=== PATIENT | female | born 1980 | race Caucasian/White ===

== ENCOUNTER 2017-07-24 14:23 | Observation (INO) | payer MEDICAID, OTHER ==
[~2017-07-24] VITALS: Ht 165.1 cm; Wt 68.2 kg
[2017-07-24 14:58] LABS: AMPHETAMINE SCREEN, URINE Positive (Negative); BARBITURATE SCREEN, URINE Negative (Negative); BENZODIAZEPINE SCREEN, URINE Negative (Negative); CANNABINOID SCREEN, URINE Positive (Negative); COCAINE SCREEN, URINE Negative (Negative); METHADONE SCREEN, URINE Negative (Negative); OPIATE SCREEN, URINE Negative (Negative)
[2017-07-24 15:04] LABS: BASOPHILS # (AUTO) 0.07 x10^3/uL (0-0.1); BASOPHILS % (AUTO) 1 % (0-1); EOSINOPHILS # (AUTO) 0.24 x10^3/uL (0-0.4); EOSINOPHILS % (AUTO) 3 % (1-7); LYMPHOCYTES # (AUTO) 2.89 x10^3/uL (1-3.4); LYMPHOCYTES % (AUTO) 31 % (22-44); MD NO; MEAN CORPUSCULAR HEMOGLOBIN 27.5 pg (27.0-34.8); MEAN CORPUSCULAR VOLUME 83.2 fL (80-100); MEAN PLATELET VOLUME 8.3 fL (7.4-10.4); MONOCYTES # (AUTO) 0.59 x10^3/uL (0.2-0.8); MONOCYTES % (AUTO) 6 % (2-9); NEUTROPHILS # (AUTO) 5.56 x10^3/uL (1.8-6.8); NEUTROPHILS % (AUTO) 59 % (42-75); PLATELET COUNT 325 x10^3/uL (130-400); RED BLOOD COUNT 5.04 x10^6/uL (3.82-5.3); RED CELL DISTRIBUTION WIDTH 15.1 % (9.6-15.2)
[2017-07-24 15:11] LABS: ALBUMIN 3.6 g/dL (3.4-5.0); ANION GAP 7 mmol/L (5-15); CALCIUM 8.8 mg/dL (8.5-10.1); CHLORIDE 106 mmol/L (98-107)
[2017-07-24 15:16] LABS: CREATININE 0.88 mg/dL (0.55-1.02)
[2017-07-24 15:19] LABS: HCG UR SG 1.023 (1.003-1.030)
[2017-07-24 15:21] LABS: SALICYLATE LEVEL < 1.7 mg/dL (2.8-20.0)
[2017-07-24 15:22] LABS: ACETAMINOPHEN < 2 mcg/mL (10-30)
[2017-07-24] MEDS ORDERED: ONDANSETRON ODT 4 MG ONE (18:51)
[2017-07-24] MEDS ORDERED: ONDANSETRON ODT 4 MG PO ONE (19:00)
[2017-07-24] MEDS: PAROXETINE 10 MG TABLET PO SCH (20:22)
[2017-07-24] MEDS: BUTALB/APAP/CAFFEINE 50MG/325MG/40MG PO ONE ×2 (20:22→20:25)
[2017-07-25] MEDS: PAROXETINE 10 MG TABLET PO SCH (09:00)
[2017-07-25 10:16] VITALS: BP 109/73
[2017-07-25] MEDS ORDERED: LEVE250T28 PO (10:26)
[2017-07-25] MEDS: ACETAMINOPHEN 325 MG TABLET PO PRN ×2 (12:10→22:28)
[2017-07-25 19:37] VITALS: BP 100/62
[2017-07-25] MEDS ORDERED: LORazepam 2 MG/ML, 1ML ONE (22:40)
[2017-07-25] MEDS ORDERED: LORazepam 2 MG/ML, 1ML IVPush ONE (23:00)
[2017-07-25] MEDS ORDERED: LEVETIRACETAM 100 MG/ML, 5ML IV ONE (23:00)
[2017-07-25 23:14] VITALS: BP 119/82
[2017-07-25] MEDS ORDERED: LEVETIRACETAM 500 MG in SODIUM CHLORIDE 0.9% 100 ML IV ONE (23:30)
[2017-07-26] MEDS ORDERED: LEVETIRACETAM 1,000 MG in SODIUM CHLORIDE 0.9% 100 ML IV ONE
[2017-07-26] MEDS ORDERED: DIPHENHYDRAMINE 50 MG/ML, 1ML IVPush ONE (00:30)
[2017-07-26] MEDS ORDERED: METOCLOPRAMIDE 5 MG/ML, 2ML IVPush ONE (00:30)
[2017-07-26 00:35] LABS: BASOPHILS # (AUTO) 0.05 x10^3/uL (0-0.1); BASOPHILS % (AUTO) 1 % (0-1); EOSINOPHILS # (AUTO) 0.27 x10^3/uL (0-0.4); EOSINOPHILS % (AUTO) 3 % (1-7); LYMPHOCYTES # (AUTO) 2.86 x10^3/uL (1-3.4); LYMPHOCYTES % (AUTO) 33 % (22-44); MD NO; MEAN CORPUSCULAR HEMOGLOBIN 27.5 pg (27.0-34.8); MEAN CORPUSCULAR VOLUME 83.1 fL (80-100); MEAN PLATELET VOLUME 8.5 fL (7.4-10.4); MONOCYTES # (AUTO) 0.63 x10^3/uL (0.2-0.8); MONOCYTES % (AUTO) 7 % (2-9); NEUTROPHILS % (AUTO) 56 % (42-75); PLATELET COUNT 336 x10^3/uL (130-400); RED BLOOD COUNT 5.06 x10^6/uL (3.82-5.3)
[2017-07-26] MEDS: SODIUM CHLORIDE 0.9% 1,000 ML IV SCH ×3 (00:38→20:21)
[2017-07-26 01:10] LABS: ALANINE AMINOTRANSFERASE 24 U/L (12-78); ALBUMIN 3.7 g/dL (3.4-5.0); ANION GAP 9 mmol/L (5-15); CALCIUM 8.8 mg/dL (8.5-10.1); CHLORIDE 105 mmol/L (98-107); CREATININE 0.96 mg/dL (0.55-1.02)
[2017-07-26 01:12] LABS: ALKALINE PHOSPHATASE 76 U/L (45-117); BILIRUBIN,TOTAL 0.5 mg/dL (0.2-1.0); TOTAL PROTEIN 7.6 g/dL (6.4-8.2)
[2017-07-26 05:25] VITALS: BP 92/72
[2017-07-26 06:50] VITALS: BP 101/60
[2017-07-26] MEDS: PAROXETINE 10 MG TABLET PO SCH (08:17)
[2017-07-26] MEDS ORDERED: LEVETIRACETAM 500 MG TABLET PO SCH (09:00)
[2017-07-26 14:00] VITALS: BP 93/50
[2017-07-26 16:04] VITALS: BP 110/70
[2017-07-26 16:10] VITALS: BP 104/64
[2017-07-26] MEDS: ACETAMINOPHEN 325 MG TABLET PO PRN (17:48)
[2017-07-26 20:01] VITALS: BP 94/52
[2017-07-26] MEDS: LEVETIRACETAM 500 MG TABLET PO SCH (20:20)
[2017-07-27 01:33] VITALS: BP 96/61
[2017-07-27 06:30] VITALS: BP 108/67
[2017-07-27] MEDS: LEVETIRACETAM 500 MG TABLET PO SCH ×2 (07:54→20:03)
[2017-07-27] MEDS: PAROXETINE 10 MG TABLET PO SCH (07:54)
[2017-07-27] MEDS: SODIUM CHLORIDE 0.9% 1,000 ML IV SCH (07:54)
[2017-07-27 12:13] VITALS: BP 106/72
[2017-07-27] MEDS: NICOTINE 21 MG/24 HR PATCH.TD24 TD SCH (12:29)
[2017-07-27 19:30] VITALS: BP 124/84
[2017-07-27] MEDS: LORazepam 1MG TABLET PO PRN (20:07)
[2017-07-28 00:51] VITALS: BP 106/69
[2017-07-28 07:53] VITALS: BP 107/70
[2017-07-28] MEDS: PAROXETINE 10 MG TABLET PO SCH (08:21)
[2017-07-28] MEDS: LEVETIRACETAM 500 MG TABLET PO SCH ×2 (08:21→20:17)
[2017-07-28 14:47] VITALS: BP 101/73
[2017-07-28] MEDS: NICOTINE 21 MG/24 HR PATCH.TD24 TD SCH (15:12)
[2017-07-28] MEDS: ACETAMINOPHEN 325 MG TABLET PO PRN (17:24)
[2017-07-28] MEDS: LORazepam 1MG TABLET PO PRN (17:24)
[2017-07-28 18:33] VITALS: BP 104/67
[2017-07-29 01:24] VITALS: BP 104/67
[2017-07-29 08:06] VITALS: BP 115/56
[2017-07-29] MEDS: LEVETIRACETAM 500 MG TABLET PO SCH ×2 (09:31→21:39)
[2017-07-29] MEDS: PAROXETINE 10 MG TABLET PO SCH (09:31)
[2017-07-29] MEDS: NICOTINE 21 MG/24 HR PATCH.TD24 TD SCH (09:31)
[2017-07-29 14:56] VITALS: BP 112/79
[2017-07-29 20:00] VITALS: BP 111/71
[2017-07-29] MEDS: LORazepam 1MG TABLET PO PRN (21:39)
[2017-07-29] MEDS: ACETAMINOPHEN 325 MG TABLET PO PRN (21:40)
[2017-07-30 02:00] VITALS: BP 99/57
[2017-07-30] MEDS: PAROXETINE 10 MG TABLET PO SCH (09:42)
[2017-07-30] MEDS: LEVETIRACETAM 500 MG TABLET PO SCH ×2 (09:42→21:07)
[2017-07-30] MEDS: NICOTINE 21 MG/24 HR PATCH.TD24 TD SCH (09:43)
[2017-07-30 12:54] VITALS: BP 114/68
[2017-07-30] MEDS: LORazepam 2 MG/ML, 1ML IVPush PRN ×2 (13:00→13:23)
[2017-07-30 14:43] VITALS: BP 132/64
[2017-07-30] MEDS: ACETAMINOPHEN 325 MG TABLET PO PRN (18:13)
[2017-07-30 20:00] VITALS: BP 110/75
[2017-07-30] MEDS: LORazepam 1MG TABLET PO PRN (21:07)
[2017-07-31 02:50] VITALS: BP 90/47
[2017-07-31 03:07] VITALS: BP 105/62
[2017-07-31] MEDS: ACETAMINOPHEN 325 MG TABLET PO PRN (06:01)
[2017-07-31 07:00] VITALS: BP 98/57
[2017-07-31] MEDS: METHOCARBAMOL 500 MG TABLET PO PRN (08:59)
[2017-07-31] MEDS: NICOTINE 21 MG/24 HR PATCH.TD24 TD SCH (08:59)
[2017-07-31] MEDS: PAROXETINE 10 MG TABLET PO SCH (08:59)
[2017-07-31] MEDS: LEVETIRACETAM 500 MG TABLET PO SCH ×2 (09:00→20:56)
[2017-07-31 11:18] VITALS: BP 91/56
[2017-07-31] MEDS: LORazepam 1MG TABLET PO PRN ×2 (12:56→22:42)
[2017-07-31 13:09] VITALS: BP 101/72
[2017-07-31] MEDS ORDERED: ASPIRIN 325 MG TABLET PO ONE (20:30)
[2017-07-31 20:44] LABS: TROPONIN I < 0.015 ng/mL (0.000-0.045)
[2017-07-31 22:41] VITALS: BP 109/73
[2017-08-01 02:36] VITALS: BP 96/68
[2017-08-01 09:10] VITALS: BP 102/64
[2017-08-01] MEDS: LEVETIRACETAM 500 MG TABLET PO SCH ×2 (09:52→20:35)
[2017-08-01] MEDS: NICOTINE 21 MG/24 HR PATCH.TD24 TD SCH (09:52)
[2017-08-01] MEDS: PAROXETINE 10 MG TABLET PO SCH (09:52)
[2017-08-01] MEDS: METHOCARBAMOL 500 MG TABLET PO PRN ×2 (12:22→21:25)
[2017-08-01] MEDS: LORazepam 1MG TABLET PO PRN ×2 (12:22→14:50)
[2017-08-01] MEDS: ACETAMINOPHEN 325 MG TABLET PO PRN (14:50)
[2017-08-01 15:25] VITALS: BP 108/69
[2017-08-01 16:42] VITALS: BP 114/73
[2017-08-01] MEDS: LORazepam 2 MG/ML, 1ML IVPush PRN (16:44)
[2017-08-01 20:00] VITALS: BP 104/67
[2017-08-02 02:00] VITALS: BP 95/62
[2017-08-02 06:53] VITALS: BP 97/56
[2017-08-02] MEDS: LEVETIRACETAM 500 MG TABLET PO SCH ×2 (09:00→20:26)
[2017-08-02] MEDS: PAROXETINE 10 MG TABLET PO SCH (10:01)
[2017-08-02] MEDS: METHOCARBAMOL 500 MG TABLET PO PRN ×2 (10:01→18:13)
[2017-08-02] MEDS: NICOTINE 21 MG/24 HR PATCH.TD24 TD SCH (10:01)
[2017-08-02 12:20] VITALS: BP 108/69
[2017-08-02] MEDS: LORazepam 2 MG/ML, 1ML IVPush PRN ×2 (14:18→19:53)
[2017-08-02 19:04] VITALS: BP 95/56
[2017-08-02] MEDS: ACETAMINOPHEN 325 MG TABLET PO PRN (20:26)
[2017-08-03 03:48] VITALS: BP 113/73
[2017-08-03] MEDS: LORazepam 2 MG/ML, 1ML IVPush PRN ×2 (05:34→21:42)
[2017-08-03] MEDS: LEVETIRACETAM 500 MG TABLET PO SCH (09:33)
[2017-08-03] MEDS: PAROXETINE 10 MG TABLET PO SCH (09:33)
[2017-08-03] MEDS: NICOTINE 21 MG/24 HR PATCH.TD24 TD SCH (09:33)
[2017-08-03] MEDS: METHOCARBAMOL 500 MG TABLET PO PRN (09:35)
[2017-08-03 14:30] VITALS: BP 95/63
[2017-08-03] MEDS: LORazepam 1MG TABLET PO PRN (17:42)
[2017-08-03 19:19] VITALS: BP 114/71
[2017-08-03] MEDS: DIVALPROEX 500 MG TAB.ER.24H PO SCH (21:40)
[2017-08-03] MEDS: ACETAMINOPHEN 325 MG TABLET PO PRN (21:40)
[2017-08-04 03:05] VITALS: BP 102/66
[2017-08-04 06:44] VITALS: BP 113/74
[2017-08-04] MEDS: NICOTINE 21 MG/24 HR PATCH.TD24 TD SCH (08:37)
[2017-08-04] MEDS: PAROXETINE 10 MG TABLET PO SCH (08:37)
[2017-08-04] MEDS: METHOCARBAMOL 500 MG TABLET PO PRN ×2 (13:59→21:07)
[2017-08-04 14:14] VITALS: BP 112/65
[2017-08-04] MEDS: ACETAMINOPHEN 325 MG TABLET PO PRN (15:42)
[2017-08-04] MEDS: ONDANSETRON 2MG/ML, 2ML IVPush PRN (16:08)
[2017-08-04] MEDS: LORazepam 2 MG/ML, 1ML IVPush PRN (17:06)
[2017-08-04 20:08] VITALS: BP 111/71
[2017-08-04] MEDS: DIVALPROEX 500 MG TAB.ER.24H PO SCH (21:07)
[2017-08-04] MEDS: LORazepam 1MG TABLET PO PRN (21:07)
[2017-08-05 02:00] VITALS: BP 135/78
[2017-08-05] MEDS: LORazepam 2 MG/ML, 1ML IVPush PRN ×2 (05:18→20:55)
[2017-08-05 07:38] VITALS: BP 130/75
[2017-08-05] MEDS: ACETAMINOPHEN 325 MG TABLET PO PRN ×2 (08:13→22:28)
[2017-08-05] MEDS: NICOTINE 21 MG/24 HR PATCH.TD24 TD SCH (08:13)
[2017-08-05] MEDS: METHOCARBAMOL 500 MG TABLET PO PRN ×2 (08:13→22:28)
[2017-08-05 15:24] VITALS: BP 102/68
[2017-08-05] MEDS: LORazepam 1MG TABLET PO PRN (16:57)
[2017-08-05 21:27] VITALS: BP 112/78
[2017-08-05] MEDS: DIVALPROEX 500 MG TAB.ER.24H PO SCH (22:27)
[2017-08-06 03:35] VITALS: BP 105/71
[2017-08-06 06:29] VITALS: BP 107/72
[2017-08-06] MEDS: NICOTINE 21 MG/24 HR PATCH.TD24 TD SCH (09:03)
[2017-08-06] MEDS: ACETAMINOPHEN 325 MG TABLET PO PRN (11:16)
[2017-08-06 12:07] VITALS: BP 115/75
[2017-08-06] MEDS: ONDANSETRON 2MG/ML, 2ML IVPush PRN (17:23)
[2017-08-06] MEDS: METHOCARBAMOL 500 MG TABLET PO PRN (17:38)
[2017-08-06 20:00] VITALS: BP 110/73
[2017-08-06] MEDS: DIVALPROEX 500 MG TAB.ER.24H PO SCH (22:40)
[2017-08-07 02:15] VITALS: BP 104/68
[2017-08-07 08:30] VITALS: BP 102/68
[2017-08-07] MEDS: NICOTINE 21 MG/24 HR PATCH.TD24 TD SCH (09:34)
[2017-08-07 14:05] VITALS: BP 105/74
[2017-08-07 18:37] VITALS: BP 99/59
[2017-08-07 19:20] VITALS: BP 120/74
[2017-08-07] MEDS: ACETAMINOPHEN 325 MG TABLET PO PRN (20:07)
[2017-08-07] MEDS: DIVALPROEX 500 MG TAB.ER.24H PO SCH (20:07)
[2017-08-07] MEDS: LORazepam 1MG TABLET PO PRN (21:19)
[2017-08-08 03:22] VITALS: BP 92/58
[2017-08-08 07:08] VITALS: BP 92/60
[2017-08-08] MEDS: NICOTINE 21 MG/24 HR PATCH.TD24 TD SCH (08:29)
[2017-08-08 14:44] VITALS: BP 111/72
[2017-08-08] MEDS: DIVALPROEX 500 MG TAB.ER.24H PO SCH (20:00)
[2017-08-08 21:17] VITALS: BP 103/70
[2017-08-08] MEDS: ONDANSETRON 2MG/ML, 2ML IVPush PRN (21:54)
[2017-08-09 01:32] VITALS: BP 90/55
[2017-08-09 09:40] VITALS: BP 99/67
[2017-08-09] MEDS: NICOTINE 21 MG/24 HR PATCH.TD24 TD SCH (09:45)
[2017-08-09 13:40] VITALS: BP 101/58
[2017-08-09] MEDS: METHOCARBAMOL 500 MG TABLET PO PRN (14:35)
[2017-08-09] MEDS: ONDANSETRON 2MG/ML, 2ML IVPush PRN ×2 (14:37→20:38)
[2017-08-09 19:21] VITALS: BP 109/79
[2017-08-09] MEDS: DIVALPROEX 500 MG TAB.ER.24H PO SCH (20:38)
[2017-08-10 01:39] VITALS: BP 114/81
[2017-08-10] MEDS: ONDANSETRON 2MG/ML, 2ML IVPush PRN ×3 (02:26→20:17)
[2017-08-10 07:40] VITALS: BP 118/78
[2017-08-10 11:28] LABS: CLOSTRIDIUM DIFFICILE ANTIGEN NEGATIVE; CLOSTRIDIUM DIFFICILE TOXIN NEGATIVE (Negative)
[2017-08-10 11:32] LABS: ALANINE AMINOTRANSFERASE 17 U/L (12-78); ALBUMIN 3.9 g/dL (3.4-5.0); ANION GAP 11 mmol/L (5-15); CALCIUM 8.8 mg/dL (8.5-10.1); CHLORIDE 103 mmol/L (98-107); CREATININE 1.17 mg/dL (0.55-1.02)
[2017-08-10 11:33] LABS: ALKALINE PHOSPHATASE 70 U/L (45-117); BILIRUBIN,TOTAL 1.1 mg/dL (0.2-1.0); TOTAL PROTEIN 7.9 g/dL (6.4-8.2)
[2017-08-10] MEDS: NICOTINE 21 MG/24 HR PATCH.TD24 TD SCH (11:59)
[2017-08-10 15:50] VITALS: BP 117/76
[2017-08-10 15:51] LABS: BASOPHILS # (AUTO) 0.03 x10^3/uL (0-0.1); BASOPHILS % (AUTO) 0 % (0-1); EOSINOPHILS # (AUTO) 0.28 x10^3/uL (0-0.4); EOSINOPHILS % (AUTO) 2 % (1-7); LYMPHOCYTES # (AUTO) 2.59 x10^3/uL (1-3.4); LYMPHOCYTES % (AUTO) 20 % (22-44); MD NO; MEAN CORPUSCULAR HEMOGLOBIN 27.9 pg (27.0-34.8); MEAN CORPUSCULAR HGB CONC 33.7 g/dL (32.4-35.8); MEAN CORPUSCULAR VOLUME 82.7 fL (80-100); MEAN PLATELET VOLUME 8.8 fL (7.4-10.4); MONOCYTES # (AUTO) 0.94 x10^3/uL (0.2-0.8); MONOCYTES % (AUTO) 7 % (2-9); NEUTROPHILS # (AUTO) 9.17 x10^3/uL (1.8-6.8); NEUTROPHILS % (AUTO) 71 % (42-75); PLATELET COUNT 277 x10^3/uL (130-400); RED BLOOD COUNT 5.44 x10^6/uL (3.82-5.3); RED CELL DISTRIBUTION WIDTH 15.3 % (9.6-15.2)
[2017-08-10] MEDS: ACETAMINOPHEN 325 MG TABLET PO PRN (17:58)
[2017-08-10 19:36] VITALS: BP 100/62
[2017-08-10] MEDS: DIVALPROEX 500 MG TAB.ER.24H PO SCH (20:17)
[2017-08-10 21:42] LABS: MICROSCOPIC AUTO
[2017-08-10 21:43] LABS: CULTURE INDICATED? YES
[2017-08-11] MEDS: ACETAMINOPHEN 325 MG TABLET PO PRN ×2 (00:45→08:53)
[2017-08-11 01:04] VITALS: BP 104/65
[2017-08-11 06:00] LABS: BASOPHILS # (AUTO) 0.03 x10^3/uL (0-0.1); BASOPHILS % (AUTO) 0 % (0-1); EOSINOPHILS % (AUTO) 3 % (1-7); LYMPHOCYTES # (AUTO) 3.48 x10^3/uL (1-3.4); LYMPHOCYTES % (AUTO) 35 % (22-44); MD NO; MEAN CORPUSCULAR HEMOGLOBIN 28.4 pg (27.0-34.8); MEAN CORPUSCULAR HGB CONC 33.8 g/dL (32.4-35.8); MEAN CORPUSCULAR VOLUME 84.2 fL (80-100); MEAN PLATELET VOLUME 8.7 fL (7.4-10.4); MONOCYTES # (AUTO) 0.81 x10^3/uL (0.2-0.8); MONOCYTES % (AUTO) 8 % (2-9); NEUTROPHILS # (AUTO) 5.44 x10^3/uL (1.8-6.8); NEUTROPHILS % (AUTO) 54 % (42-75); PLATELET COUNT 254 x10^3/uL (130-400); RED BLOOD COUNT 5.35 x10^6/uL (3.82-5.3); RED CELL DISTRIBUTION WIDTH 15.6 % (9.6-15.2)
[2017-08-11 06:03] LABS: CHLORIDE 104 mmol/L (98-107)
[2017-08-11 06:10] LABS: ALANINE AMINOTRANSFERASE 15 U/L (12-78); ALBUMIN 3.7 g/dL (3.4-5.0); ALKALINE PHOSPHATASE 65 U/L (45-117); ANION GAP 10 mmol/L (5-15); BILIRUBIN,TOTAL 1.2 mg/dL (0.2-1.0); CALCIUM 8.6 mg/dL (8.5-10.1); CREATININE 0.99 mg/dL (0.55-1.02); TOTAL PROTEIN 7.7 g/dL (6.4-8.2)
[2017-08-11] MEDS: ONDANSETRON 2MG/ML, 2ML IVPush PRN (08:52)
[2017-08-11 10:27] VITALS: BP 99/62
[2017-08-11] MEDS: NICOTINE 21 MG/24 HR PATCH.TD24 TD SCH (13:40)
[2017-08-11 14:34] VITALS: BP 91/58
[2017-08-11 14:55] VITALS: BP 110/67
[2017-08-11] MEDS: DIVALPROEX 500 MG TAB.ER.24H PO SCH ×2 (20:11→20:16)
[2017-08-11] MEDS: LORazepam 1MG TABLET PO PRN (20:16)
[2017-08-11 20:35] VITALS: BP 99/62
[2017-08-11 22:00] VITALS: BP 102/67
[2017-08-12] MEDS: ACETAMINOPHEN 325 MG TABLET PO PRN (00:31)
[2017-08-12 06:51] LABS: BASOPHILS # (AUTO) 0.03 x10^3/uL (0-0.1); BASOPHILS % (AUTO) 0 % (0-1); EOSINOPHILS # (AUTO) 0.44 x10^3/uL (0-0.4); EOSINOPHILS % (AUTO) 5 % (1-7); LYMPHOCYTES # (AUTO) 3.26 x10^3/uL (1-3.4); LYMPHOCYTES % (AUTO) 36 % (22-44); MD NO; MEAN CORPUSCULAR HEMOGLOBIN 27.6 pg (27.0-34.8); MEAN CORPUSCULAR HGB CONC 32.9 g/dL (32.4-35.8); MEAN CORPUSCULAR VOLUME 83.7 fL (80-100); MEAN PLATELET VOLUME 8.1 fL (7.4-10.4); MONOCYTES # (AUTO) 0.86 x10^3/uL (0.2-0.8); MONOCYTES % (AUTO) 10 % (2-9); NEUTROPHILS # (AUTO) 4.41 x10^3/uL (1.8-6.8); NEUTROPHILS % (AUTO) 49 % (42-75); PLATELET COUNT 217 x10^3/uL (130-400); RED BLOOD COUNT 4.97 x10^6/uL (3.82-5.3); RED CELL DISTRIBUTION WIDTH 15.4 % (9.6-15.2)
[2017-08-12 07:02] LABS: ANION GAP 7 mmol/L (5-15); CALCIUM 8.5 mg/dL (8.5-10.1); CHLORIDE 105 mmol/L (98-107)
[2017-08-12 07:52] VITALS: BP 100/66
[2017-08-12] MEDS: NICOTINE 21 MG/24 HR PATCH.TD24 TD SCH (08:41)
[2017-08-12] MEDS: LORazepam 1MG TABLET PO PRN (14:13)
[2017-08-12 20:17] VITALS: BP 130/84
[2017-08-12] MEDS: CEFDINIR 300 MG CAPSULE PO SCH (21:09)
[2017-08-12] MEDS: DIVALPROEX 500 MG TAB.ER.24H PO SCH (21:10)
[2017-08-12] MEDS ORDERED: ONDANSETRON 4 MG TABLET PO PRN (22:30)
[2017-08-12] MEDS ORDERED: ONDANSETRON 4 MG TABLET ONE (22:32)
[2017-08-13] MEDS: CEFDINIR 300 MG CAPSULE PO SCH ×2 (08:29→20:22)
[2017-08-13] MEDS: NICOTINE 21 MG/24 HR PATCH.TD24 TD SCH (08:29)
[2017-08-13 09:15] VITALS: BP 109/75
[2017-08-13] MEDS: LORazepam 1MG TABLET PO PRN ×2 (14:32→20:57)
[2017-08-13 19:44] VITALS: BP 96/61
[2017-08-13] MEDS: DIVALPROEX 500 MG TAB.ER.24H PO SCH (20:23)
[2017-08-14] MEDS: CEFDINIR 300 MG CAPSULE PO SCH ×2 (08:31→21:04)
[2017-08-14] MEDS: NICOTINE 21 MG/24 HR PATCH.TD24 TD SCH (08:31)
[2017-08-14 08:33] VITALS: BP 96/63
[2017-08-14 20:03] VITALS: BP 111/73
[2017-08-14] MEDS: METHOCARBAMOL 500 MG TABLET PO PRN (20:03)
[2017-08-14] MEDS ORDERED: PRAZOSIN 1 MG CAPSULE PO SCH (21:00)
[2017-08-14] MEDS: DIVALPROEX 500 MG TAB.ER.24H PO SCH (21:04)
[2017-08-15 01:28] VITALS: BP 107/65
[2017-08-15 08:43] VITALS: BP 91/57
[2017-08-15] MEDS: NICOTINE 21 MG/24 HR PATCH.TD24 TD SCH (09:37)
[2017-08-15] MEDS: CEFDINIR 300 MG CAPSULE PO SCH (09:38)
[2017-08-15] MEDS ORDERED: PRAZ1CAP2 PO (13:44)
[2017-08-15] MEDS ORDERED: DIVA500T4 PO (13:44)
[2017-08-15] MEDS ORDERED: CEFD300C37 PO (13:44)
[2017-08-15] MEDS ORDERED: [UNRECOGNIZED DRUG - OTHER] (13:44)
[2017-08-15] MEDS ORDERED: HYDR25CA PO (13:44)
[2017-08-15] MEDS ORDERED: NICO-487 TD (13:44)
== END 2017-08-15 15:28 | disposition home or self-care (01) ==
LOC: ED 15:00 → EDBD 17:13 → EDIP 17:13 → 2N 07-25 10:06 → 4WST 07-25 23:16 → 3E 08-11 21:57
PROVIDERS: ADMIT Internal Medicine; ATTEND Internal Medicine
DX: R45.851 Suicidal ideations (principal); G43.909 Migraine, unspecified, not intractable, without status migrainosus; G40.909 Epilepsy, unspecified, not intractable, without status epilepticus; F41.9 Anxiety disorder, unspecified; F32.9 Major depressive disorder, single episode, unspecified; F12.10 Cannabis abuse, uncomplicated; F15.10 Other stimulant abuse, uncomplicated; F17.210 Nicotine dependence, cigarettes, uncomplicated; Z88.0 Allergy status to penicillin; Z91.19 Patient's noncompliance with other medical treatment and regimen; Z91.5 Personal history of self-harm
CPT/HCPCS: 36415; 70450; 80048; 80053; 80164; 80177; 80307; 80329; 81001; 81025; 82040; 82962; 83690; 83735; 84484; 85025; 87086; 87324; 93005; 93971; 95819; 95951; 96361; 96374; 96375; 96376; 97162; 97165; 97530; 99285; G0378; J1200; J1953; J2060; J2405; J2765; J7030; Q0162; Q0177; G0480

== ENCOUNTER 2017-08-23 02:06 | Emergency (ER) | payer MEDICAID, OTHER ==
[~2017-08-23] VITALS: Ht 162.6 cm; Wt 70.0 kg
[~2017-08-23 02:06] MED LIST: CEFD300C37 PO; DIVA500T4 PO; HYDR25CA PO; LEVE250T28 PO; NICO-487 TD; PRAZ1CAP2 PO; [UNRECOGNIZED DRUG - OTHER]
[2017-08-23] MEDS ORDERED: HYDROcodone/APAP 5/325 TABLET ONE (02:24)
[2017-08-23] MEDS ORDERED: HYDROcodone/APAP 5/325 TABLET PO ONE (02:30)
[2017-08-23] MEDS ORDERED: OMNIPAQUE 350 MG/ML, 100ML BOTTLE ONE (03:00)
[2017-08-23 04:14] VITALS: BP 122/78
== END 2017-08-23 04:18 | disposition home or self-care (01) ==
LOC: ED 04:12
DX: M54.2 Cervicalgia (principal); G89.11 Acute pain due to trauma
CPT/HCPCS: 70498; 99284; Q9967

== ENCOUNTER 2018-08-24 18:43 | Emergency (ER) | payer MEDICAID ==
[~2018-08-24] VITALS: Ht 165.1 cm; Wt 58.2 kg
[2018-08-24 18:51] VITALS: BP 148/79
--- NOTE | 2018-08-24 19:19 | NUR ---
PT WALKED BACK FROM LOBBY TO ROOM AT THIS TIME. STEADY UPON AMBULATION. NAD NOTED.
[2018-08-24] MEDS ORDERED: ACETAMINOPHEN 325 MG TABLET ONE (19:48)
[2018-08-24] MEDS ORDERED: ACETAMINOPHEN 325 MG TABLET PO ONE (20:00)
[2018-08-24] MEDS ORDERED: BACITRACIN ZINC OINT 500U/GM, 0.9 GM ONE (20:09)
== END 2018-08-24 20:21 | disposition home or self-care (01) ==
LOC: ED 20:10
DX: G89.11 Acute pain due to trauma (principal); M79.642 Pain in left hand; G40.909 Epilepsy, unspecified, not intractable, without status epilepticus; W26.0XXA Contact with knife, initial encounter; Y93.89 Activity, other specified; Y92.89 Other specified places as the place of occurrence of the external cause; Y99.8 Other external cause status
CPT/HCPCS: 99283

== ENCOUNTER 2018-10-13 13:15 | Emergency (ER) | payer MEDICAID ==
[~2018-10-13] VITALS: Ht 165.1 cm; Wt 61.0 kg
[2018-10-13 13:19] VITALS: BP 136/77
== END 2018-10-13 15:13 | disposition home or self-care (01) ==
LOC: ED 14:17
DX: S60.512A Abrasion of left hand, initial encounter (principal); S60.511A Abrasion of right hand, initial encounter; M70.41 Prepatellar bursitis, right knee; G40.909 Epilepsy, unspecified, not intractable, without status epilepticus; Z88.0 Allergy status to penicillin; X58.XXXA Exposure to other specified factors, initial encounter; Y93.89 Activity, other specified; Y92.89 Other specified places as the place of occurrence of the external cause; Y99.8 Other external cause status
CPT/HCPCS: 99283

== ENCOUNTER 2018-10-22 05:40 | Emergency (ER) | payer MEDICAID ==
[~2018-10-22] VITALS: Ht 165.1 cm; Wt 54.6 kg
[2018-10-22] MEDS ORDERED: BACITRACIN ZINC OINT 500U/GM, 0.9 GM ONE (05:56)
--- NOTE | 2018-10-22 05:58 | NUR ---
PT AWARE A UA IS NEEDED. PT STATES UNABLE TO GO AT THIS TIME. SAMPLE CUP PROVIDED. SITTER IN PLACE.
[2018-10-22] MEDS ORDERED: SULFAMETH./TRIMETHOPRIM DS 800MG/160MG TABLET PO ONE (06:00)
[2018-10-22] MEDS ORDERED: CEPHALEXIN 500 MG CAPSULE PO ONE (06:00)
[2018-10-22] MEDS ORDERED: QUET25TA5 PO (06:14)
[2018-10-22] MEDS ORDERED: CEPHALEXIN 500 MG CAPSULE ONE (06:15)
[2018-10-22] MEDS ORDERED: SULFAMETH./TRIMETHOPRIM DS 800MG/160MG TABLET ONE (06:15)
[2018-10-22 06:16] LABS: BASOPHILS # (AUTO) 0.06 x10^3/uL (0-0.1); BASOPHILS % (AUTO) 1 % (0-1); EOSINOPHILS # (AUTO) 0.14 x10^3/uL (0-0.4); EOSINOPHILS % (AUTO) 1 % (1-7); LYMPHOCYTES # (AUTO) 1.97 x10^3/uL (1-3.4); LYMPHOCYTES % (AUTO) 17 % (22-44); MD NO; MEAN CORPUSCULAR HEMOGLOBIN 28.2 pg (27.0-34.8); MEAN CORPUSCULAR HGB CONC 32.8 g/dL (32.4-35.8); MEAN CORPUSCULAR VOLUME 85.9 fL (80-100); MEAN PLATELET VOLUME 7.9 fL (7.4-10.4); MONOCYTES # (AUTO) 0.86 x10^3/uL (0.2-0.8); MONOCYTES % (AUTO) 8 % (2-9); NEUTROPHILS # (AUTO) 8.27 x10^3/uL (1.8-6.8); NEUTROPHILS % (AUTO) 73 % (42-75); PLATELET COUNT 336 x10^3/uL (130-400); RED BLOOD COUNT 4.27 x10^6/uL (3.82-5.3); RED CELL DISTRIBUTION WIDTH 13.6 % (9.6-15.2)
--- NOTE | 2018-10-22 06:21 | NUR ---
[facility] AT [facility].
[2018-10-22 06:27] LABS: ALANINE AMINOTRANSFERASE 22 U/L (12-78); ALBUMIN 3.3 g/dL (3.4-5.0); ANION GAP 8 mmol/L (5-15); CALCIUM 8.3 mg/dL (8.5-10.1); CHLORIDE 107 mmol/L (98-107)
[2018-10-22 06:31] LABS: SALICYLATE LEVEL < 1.7 mg/dL (2.8-20.0)
[2018-10-22 06:34] LABS: ALKALINE PHOSPHATASE 78 U/L (45-117); BILIRUBIN,TOTAL 0.6 mg/dL (0.2-1.0); CREATININE 0.89 mg/dL (0.55-1.02); TOTAL PROTEIN 7.1 g/dL (6.4-8.2)
[2018-10-22 06:36] LABS: ACETAMINOPHEN < 2 mcg/mL (10-30)
--- NOTE | 2018-10-22 06:47 | NUR ---
RECEIVED BEDSIDE REPORT FROM DICK BENJAMIN.
--- NOTE | 2018-10-22 07:09 | NUR ---
PT SBA TO BATHROOM.
--- NOTE | 2018-10-22 07:16 | NUR ---
PT PROVIDED UA SAMPLE. PT TEARFUL STATES "MY ARM HURTS WHERE I CUT IT." WOUND DRESSED. NO EXUDATE ON DRESSING. NO ACUTE DISTRESS NOTED. PT BACK TO ROOM. ALL SAFETY MEASURES OBTAINED. SITTER AT DOORWAY. DIET TRAY ORDERED.
--- NOTE | 2018-10-22 07:20 | NUR ---
PT RESTING ON GURNEY. PT TEARFUL. PT DENIES HI. PT STATES "I CUT MYSELF WITH A RAZOR BECAUSE I WANTED MY LIFE TO END. NOW I JUST WANT THE PAIN TO STOP." ALL SAFETY MEASURES OBTAINED.
--- NOTE | 2018-10-22 07:30 | NUR ---
DIET TRAY DELIVERED.
[2018-10-22 07:36] LABS: AMPHETAMINE SCREEN, URINE Positive (Negative); BARBITURATE SCREEN, URINE Negative (Negative); BENZODIAZEPINE SCREEN, URINE Negative (Negative); CANNABINOID SCREEN, URINE Positive (Negative); COCAINE SCREEN, URINE Negative (Negative); METHADONE SCREEN, URINE Negative (Negative); OPIATE SCREEN, URINE Negative (Negative)
[2018-10-22 07:40] LABS: MICROSCOPIC AUTO
[2018-10-22 07:41] LABS: CULTURE INDICATED? YES
[2018-10-22] MEDS ORDERED: ACETAMINOPHEN 325 MG TABLET ONE ×3 (07:41→14:02)
--- NOTE | 2018-10-22 07:46 | NUR ---
PT EDUCATED REGARDING LEGAL HOLD.
[2018-10-22] MEDS ORDERED: ACETAMINOPHEN 325 MG TABLET PO ONE ×2 (08:00→14:00)
--- NOTE | 2018-10-22 08:02 | NUR ---
Alejandro with [facility] stated patient has [facility] expansion
--- NOTE | 2018-10-22 08:04 | NUR ---
Call to [facility] for HPN expansion assessment.
--- NOTE | 2018-10-22 08:35 | NUR ---
PT RESTING ON GURNEY. NO ACUTE DISTRESS NOTED. LIGHTS ARE OUT IN ROOM. ALL SAFETY MEASURES OBTAINED. SITTER AT DOORWAY. WILL CONTINUE TO MONITOR.
--- NOTE | 2018-10-22 08:49 | NUR ---
BEDSIDE REPORT DICK DOMINGUEZ.
--- NOTE | 2018-10-22 09:22 | NUR ---
ASSUMED CARE OF PT. RIGHT HAND HAS CLEAN DRY DRESSING WITH NO ERYTHEMA NOTED PROXIMALLY. LARGE BANDAIDS IN PLACE TOP OF LEFT HAND. VS UPDATED. PT STATES SHE HAS A LOT OF THINGS GOING ON AND FEELING SUICIDAL. PT STATES SHE CUT HERSELF TWO DAYS AGO. C/O PAIN TO RIGHT ARM WHEN SHE MOVES IT
--- NOTE | 2018-10-22 10:16 | NUR ---
ALL SAFETY MEASURES OBTAINED. SITTER AT DOORWAY. PT SLEEPING
--- NOTE | 2018-10-22 11:03 | NUR ---
NO CALL BACK FROM [facility], 2ND CALL MADE, ALL INFORMATION GIVEN AGAIN TO THE SERVICE. SERVICE STATED THAT [facility] IS OPEN TODAY AND PERFORMING ASSESSMENTS. SERVICE STATED THEY WOULD PASS ON INFORMATION AGAIN.
--- NOTE | 2018-10-22 11:15 | NUR ---
Packet faxed to [facility] and [facility].
--- NOTE | 2018-10-22 11:48 | NUR ---
PT SLEEPING. SITTER AT DOOR
--- NOTE | 2018-10-22 13:00 | NUR ---
CALL FROM [facility]. UNABLE TO TAKE PT AT THIS TIME DUE TO BEING FULL. CALLED [facility]. THEY HAVE BEDS. REVIEWING PT PACKET
--- NOTE | 2018-10-22 14:04 | NUR ---
PT C/O INCREASING PAIN IN HAND. MEDICATED FOR SAME. PROVIDED LUNCH TRAY. SITTER REMAINS AT DOOR
--- NOTE | 2018-10-22 14:31 | NUR ---
REPORT TO PATRICK JENNINGS, [place]. INFORMED DR. SANDOVAL ACCEPTS PT.
--- NOTE | 2018-10-22 14:31 | NUR ---
REPORT GIVEN TO PATRICK JENNINGS, [place]. INFORMED DR SANDOVAL HAS ACCEPTED PT
[2018-10-22 14:50] VITALS: BP 104/67
--- NOTE | 2018-10-22 15:51 | NUR ---
SALMA ALTAMIRANO MADE AWARE PT LEAVING [facility] TO [place] AT THIS TIME
== END 2018-10-22 15:56 ==
LOC: ED 07:38
DX: F33.9 Major depressive disorder, recurrent, unspecified (principal); S61.511A Laceration without foreign body of right wrist, initial encounter; S60.512A Abrasion of left hand, initial encounter; N30.00 Acute cystitis without hematuria; F11.10 Opioid abuse, uncomplicated; F15.10 Other stimulant abuse, uncomplicated; F17.200 Nicotine dependence, unspecified, uncomplicated; X58.XXXA Exposure to other specified factors, initial encounter; Y93.89 Activity, other specified; Y92.89 Other specified places as the place of occurrence of the external cause; Y99.8 Other external cause status
CPT/HCPCS: 36415; 80053; 80307; 81001; 84703; 85025; 87086; 99285